=== PATIENT | male | born 1945 | race Caucasian/White ===

== ENCOUNTER → 2018-04-20 | Outpatient (CLI) | payer MEDICARE, OTHER ==
[~2018-04-20] MED LIST: LEVO750 PO; XARELTO20 MG PO
== END ==
LOC: PLD 10:44 → LAB SHORT 10:44
DX: D48.5 Neoplasm of uncertain behavior of skin (principal)
CPT/HCPCS: 88305

== ENCOUNTER 2019-06-25 15:49 | Emergency (ER) | payer MEDICARE, OTHER ==
[~2019-06-25] VITALS: Ht 170.2 cm; Wt 102.1 kg
[2019-06-25] MEDS ORDERED: METF500 PO (16:17)
[2019-06-25 16:22] LABS: BASOPHILS ABSOLUTE AUTO 0.07 K/mm3 (0.00-0.23); BASOPHILS PERCENT AUTO 1 % (0-2); EOSINOPHILS ABSOLUTE AUTO 0.51 K/mm3 (0.00-0.68); EOSINOPHILS PERCENT AUTO 5 % (0-6); Hematocrit 49.5 % (37.0-53.0); Hemoglobin 15.8 g/dL (13.5-17.5); IMMATURE GRAN ABSOLUTE AUTO 0.04 K/mm3 (0.00-0.10); IMMATURE GRAN PERCENT AUTO 0 % (0-1); LYMPHOCYTES ABSOLUTE AUTO 3.99 K/mm3 (0.84-5.20); LYMPHOCYTES PERCENT AUTO 38 % (21-46); MONOCYTES ABSOLUTE AUTO 1.19 K/mm3 (0.16-1.47); MONOCYTES PERCENT AUTO 11 % (4-13); Mean Corpuscular HGB 31.5 pg (26.0-34.0); Mean Corpuscular HGB Conc 31.9 g/dL (31.5-36.5); Mean Corpuscular Volume 99 fL (80-100); Mean Platelet Volume 11.1 fL (9.1-12.4); NEUTROPHILS ABSOLUTE AUTO 4.62 K/mm3 (1.96-9.15); NEUTROPHILS PERCENT AUTO 44 % (41-73); Platelet Count 211 K/mm3 (150-400); RDW Coefficient Variation 14.1 % (11.7-14.2); RDW Standard Deviation 51.2 fL (35.1-46.3); Red Blood Cell Count 5.02 M/mm3 (4.30-5.90); White Blood Cell Count 10.42 K/mm3 (4.00-11.30)
[2019-06-25 16:41] LABS: Alanine Aminotransfer (ALT/SGP 26 U/L (12-78); Albumin, Blood 3.4 g/dL (3.4-5.0); Albumin/Globulin Ratio 0.8 (0.8-1.8); Alk Phos 64 U/L (50-136); Anion Gap 5 mmol/L (6-16); Aspartate Aminotrans (AST/SGOT 20 U/L (12-37); Bilirubin, Total 0.5 mg/dL (0.1-1.0); Blood Urea Nitrogen 16 mg/dL (8-24); Bun/Creatinine Ratio 15.4 (12.0-20.0); CO2, Blood 29 mmol/L (21-32); Calcium, Blood 9.2 mg/dL (8.5-10.1); Chloride, Blood 108 mmol/L (98-108); Creatinine, Blood 1.04 mg/dL (0.60-1.20); Glomerular Filtration Rate >60 (60-); Glucose, Blood 105 mg/dL (70-99); Potassium, Blood 3.9 mmol/L (3.5-5.5); Sodium, Blood 142 mmol/L (136-145); Total Protein, Blood 7.4 g/dL (6.4-8.2); Troponin I <0.015 ng/mL (0.000-0.040)
== END 2019-06-25 19:24 | disposition home or self-care (01) ==
LOC: ER 15:49
PROVIDERS: Physician Assistant
DX: R07.2 Precordial pain (principal); R60.0 Localized edema; Z87.891 Personal history of nicotine dependence; E11.9 Type 2 diabetes mellitus without complications; Z86.718 Personal history of other venous thrombosis and embolism; Z79.899 Other long term (current) drug therapy; Z79.01 Long term (current) use of anticoagulants; Z79.84 Long term (current) use of oral hypoglycemic drugs
CPT/HCPCS: 36415; 71046; 80053; 83880; 84484; 85025; 93005; 93010; 99285-25

== ENCOUNTER → 2021-12-17 | Outpatient (CLI) | payer MEDICARE, OTHER ==
[~2021-12-17] MED LIST changes: +METF500 PO
== END | disposition home or self-care (01) ==
LOC: LAB SHORT 07:57 → PLD 07:57 → LAB 07:57
DX: L98.9 Disorder of the skin and subcutaneous tissue, unspecified (principal)
CPT/HCPCS: 88305; 88312

== ENCOUNTER → 2022-02-23 | Outpatient (CLI) | payer MEDICARE, OTHER | END | disposition home or self-care (01) | LOC: LAB SHORT 14:58 → PLD 14:58 | DX: L30.8 Other specified dermatitis (principal) | CPT/HCPCS: 88305; 88312 ==

== ENCOUNTER → 2022-04-08 | Outpatient (CLI) | payer MEDICARE, OTHER ==
[2022-04-08 12:03] LABS: BASOPHILS ABSOLUTE AUTO 0.09 K/mm3 (0.00-0.23); BASOPHILS PERCENT AUTO 1 % (0-2); EOSINOPHILS ABSOLUTE AUTO 0.68 K/mm3 (0.00-0.68); EOSINOPHILS PERCENT AUTO 7 % (0-6); Hematocrit 46.9 % (37.0-53.0); Hemoglobin 15.3 g/dL (13.5-17.5); IMMATURE GRAN ABSOLUTE AUTO 0.07 K/mm3 (0.00-0.10); IMMATURE GRAN PERCENT AUTO 1 % (0-1); LYMPHOCYTES ABSOLUTE AUTO 3.06 K/mm3 (0.84-5.20); LYMPHOCYTES PERCENT AUTO 30 % (21-46); MONOCYTES ABSOLUTE AUTO 1.29 K/mm3 (0.16-1.47); MONOCYTES PERCENT AUTO 13 % (4-13); Mean Corpuscular HGB 31.4 pg (26.0-34.0); Mean Corpuscular HGB Conc 32.6 g/dL (31.5-36.5); Mean Corpuscular Volume 96 fL (80-100); Mean Platelet Volume 11.2 fL (9.1-12.4); NEUTROPHILS ABSOLUTE AUTO 5.04 K/mm3 (1.96-9.15); NEUTROPHILS PERCENT AUTO 49 % (41-73); Platelet Count 245 K/mm3 (150-400); RDW Coefficient Variation 14.4 % (11.7-14.2); RDW Standard Deviation 51.7 fL (35.1-46.3); Red Blood Cell Count 4.87 M/mm3 (4.30-5.90); White Blood Cell Count 10.23 K/mm3 (4.00-11.30)
[2022-04-08 12:38] LABS: Alanine Aminotransfer (ALT/SGP 33 U/L (12-78); Albumin, Blood 3.3 g/dL (3.4-5.0); Albumin/Globulin Ratio 0.8 (0.8-1.8); Alk Phos 67 U/L (50-136); Anion Gap 6 mmol/L (6-16); Aspartate Aminotrans (AST/SGOT 24 U/L (12-37); Bilirubin, Total 0.4 mg/dL (0.1-1.0); Blood Urea Nitrogen 19 mg/dL (8-24); CO2, Blood 23 mmol/L (21-32); Calcium, Blood 9.7 mg/dL (8.5-10.1); Chloride, Blood 111 mmol/L (98-108); Cholesterol 228 mg/dL (50-200); Creatinine, Blood 1.12 mg/dL (0.60-1.20); Globulin, Blood 3.9 g/dL (2.2-4.0); Glomerular Filtration Rate 67 (60-); Glucose, Blood 115 mg/dL (70-99); HDL Cholesterol 46 mg/dL (>39); LDL/HDL RATIO 3.1; Low Density Lipoprotein Chol 141 mg/dL (0-110); Potassium, Blood 4.2 mmol/L (3.5-5.5); Sodium, Blood 140 mmol/L (136-145); Total Protein, Blood 7.2 g/dL (6.4-8.2); Triglycerides 204 mg/dL (30-160); Very Low Density Lipoprot Chol 40 mg/dL (6-32)
== END | disposition home or self-care (01) ==
LOC: LAB SHORT 11:33
PROVIDERS: Internal Medicine
DX: E78.5 Hyperlipidemia, unspecified (principal); D68.59 Other primary thrombophilia; R73.01 Impaired fasting glucose
CPT/HCPCS: 80053; 80061; 83036; 85025

== ENCOUNTER → 2023-02-03 | Outpatient (CLI) | payer MEDICARE, OTHER | END | disposition home or self-care (01) | LOC: LAB SHORT 07:33 → PLD 07:33 | DX: D04.39 Carcinoma in situ of skin of other parts of face (principal); L81.4 Other melanin hyperpigmentation; L57.8 Other skin changes due to chronic exposure to nonionizing radiation; B88.9 Infestation, unspecified | CPT/HCPCS: 88305 ==

== ENCOUNTER → 2023-04-26 | Outpatient (CLI) | payer MEDICARE, OTHER ==
[~2023-04-26] MED LIST changes: +CEFP200 PO
[2023-05-04 10:15] LABS: BRUSHITE 1.83 ratio (0.00-3.00); CALCIUM OXALATE 3.33 ratio (0.00-6.00); CALCIUM, URINE 54.9 mg/24 hr (0.0-320.0); CALCIUM, URINE 6.1 mg/dL (Not Estab.); CHLORIDE URINE 97 (52-264); CITRIC ACID (CITRATE) 292 mg/L (Not Estab.); CITRIC ACID(CITRATE) 263 mg/24 hr (320-1240); CREATININE, URINE 776.7 mg/24 hr (1000.0-2000.0); CREATININE, URINE 86.3 mg/dL (Not Estab.); MAGNESIUM, URINE 7.1 mg/dL (Not Estab.); MONOSODIUM URATE 7.17 ratio (0.00-4.00); OSMOLALITY, URINE 539 (300-900); SODIUM, URINE 133 (58-337); SODIUM, URINE 148 mmol/L (Not Estab.); STRUVITE 0.09 ratio (0.00-1.00); URIC ACID 0.39 ratio (0.00-1.20); URINE VOLUME 900 mL/24 hr (800-1800); URINE VOLUME (PRESERVATIVE) 900 mL/24 hr (800-1800)
== END | disposition home or self-care (01) ==
LOC: LAB SHORT 08:10 → LAB 08:10
PROVIDERS: Urology
DX: N20.2 Calculus of kidney with calculus of ureter (principal)
CPT/HCPCS: 81003; 81050; 82131; 82140; 82340; 82436; 82507; 82570; 83735; 83935; 83945; 84105; 84133; 84300; 84392; 84560

== ENCOUNTER 2024-07-03 13:34 | Inpatient (IN) | payer MEDICARE, OTHER ==
[~2024-07-03] VITALS: Ht 172.7 cm; Wt 90.0 kg
[2024-07-03] MEDS ORDERED: Ondansetron HCl 2 MG / ML 2ML Vial IV PRN (14:00)
[2024-07-03 14:26] LABS: BASOPHILS ABSOLUTE AUTO 0.05 K/mm3 (0.00-0.23); BASOPHILS PERCENT AUTO 0 % (0-2); EOSINOPHILS PERCENT AUTO 0 % (0-6); Hematocrit 45.4 % (37.0-53.0); Hemoglobin 14.9 g/dL (13.5-17.5); IMMATURE GRAN ABSOLUTE AUTO 0.08 K/mm3 (0.00-0.10); IMMATURE GRAN PERCENT AUTO 1 % (0-1); LYMPHOCYTES ABSOLUTE AUTO 0.89 K/mm3 (0.84-5.20); LYMPHOCYTES PERCENT AUTO 6 % (21-46); MONOCYTES PERCENT AUTO 13 % (4-13); Mean Corpuscular HGB 31.9 pg (26.0-34.0); Mean Corpuscular HGB Conc 32.8 g/dL (31.5-36.5); Mean Corpuscular Volume 97 fL (80-100); Mean Platelet Volume 10.5 fL (9.1-12.4); NEUTROPHILS ABSOLUTE AUTO 12.32 K/mm3 (1.96-9.15); NEUTROPHILS PERCENT AUTO 81 % (41-73); Platelet Count 242 K/mm3 (150-400); RDW Coefficient Variation 14.4 % (11.7-14.2); RDW Standard Deviation 52.3 fL (35.1-46.3); Red Blood Cell Count 4.67 M/mm3 (4.30-5.90); White Blood Cell Count 15.24 K/mm3 (4.00-11.30)
[2024-07-03 14:46] LABS: Albumin/Globulin Ratio 0.7 (0.8-1.8); Bilirubin, Total 1.1 mg/dL (0.1-1.0); Bun/Creatinine Ratio 12.7 (12.0-20.0); Calcium, Blood 9.3 mg/dL (8.5-10.1); Creatinine, Blood 1.26 mg/dL (0.60-1.20); Globulin, Blood 4.6 g/dL (2.2-4.0); Potassium, Blood 3.8 mmol/L (3.5-5.5); Total Protein, Blood 7.6 g/dL (6.4-8.2)
[2024-07-03] MEDS ORDERED: Lactated Ringer's 1,000 ML IV SCH (15:40)
[2024-07-03] MEDS ORDERED: JARDIANCE10 MG PO (15:55)
[2024-07-03] MEDS ORDERED: ATORVASTATIN CA20 MG PO (15:55)
[2024-07-03] MEDS ORDERED: Piperacillin/Tazobactam Sod 3.375 GM in NS 100 ML IV ONE (16:00)
[2024-07-03] MEDS ORDERED: Vancomycin HCL 2,000 MG in NS 520 ML IV ONE (16:00)
[2024-07-03 16:21] LABS: Source, Urine Clean Catch
[2024-07-03 16:28] LABS: Appearance, Urine Cloudy (Clear); Bilirubin, Urine Neg (Neg); Blood, Urine 4+ (Neg); Color, Urine Yellow (P-Yellow); Glucose Qualitative, Urine 4+ (Neg); Ketones, Urine 2+ (Neg); Leukocyte Esterase, Urine Neg (Neg); Nitrite, Urine Neg (Neg); Protein, Urine 3+ (Neg); Specific Gravity, Urine 1.025 (1.003-1.022); Urobilinogen, Urine NORM (Normal)
[2024-07-03 16:41] LABS: Amorphous Mod (0-Heavy); Bacteria Few /hpf; Squamous Epithelial Cells Few /hpf (Few); White Blood Cells, Urine 0-2 /hpf (0-5); Yeast/Fungi Urine Rare /hpf
[2024-07-03 16:44] LABS: Hyaline Casts 0-2 /lpf (0-2); Renal Epithelial Rare /hpf (0-Rare)
[2024-07-03] MEDS ORDERED: Guaifenesin/Dextromethorphan Syrup 5 ML UDC PO PRN (18:45)
[2024-07-03] MEDS ORDERED: Ipratropium/Albuterol SulF 2.5-0.5MG/3 ML Amp INH SCH (18:45)
[2024-07-03] MEDS ORDERED: Acetaminophen 325 MG TABLET PO PRN (18:45)
[2024-07-03] MEDS ORDERED: Albuterol 2.5 MG/3 ML VIAL INH PRN (18:45)
[2024-07-03] MEDS ORDERED: NS 1,000 ML IV SCH ×2 (18:50→19:30)
[2024-07-03] MEDS ORDERED: Azithromycin 500 MG in NS 250 ML IV ONE (19:00)
[2024-07-03] MEDS ORDERED: FLU VACC TS2024-25(6MOS UP)/PF 45 MCG/0.5 ML SYRINGE IM ONE (20:00)
[2024-07-03] MEDS ORDERED: Calcium Carbonate 500 MG Tab Chew PO ONE (20:00)
[2024-07-03 20:18] LABS: Influenza A, PCR NEGATIVE (NEGATIVE); Influenza B, PCR NEGATIVE (NEGATIVE); Resp Syncytial Virus, PCR NEGATIVE (NEGATIVE); SARS-Cov-2 (COVID-19) PCR, MMC NEGATIVE (NEGATIVE)
[2024-07-03] MEDS ORDERED: Atorvastatin 10 MG Tab PO SCH (21:00)
[2024-07-03] MEDS ORDERED: Insulin Human Lispro 100 Units/ML 3ML Syringe SC SCH (21:00)
[2024-07-03] MEDS ORDERED: GuaiFENesin 600 MG TabCR PO SCH (21:00)
[2024-07-03] MEDS ORDERED: NS 1,000 ML IV ONE (22:22)
[2024-07-03] MEDS ORDERED: Piperacillin/Tazobactam Sod 3.375 GM in NS 100 ML IV SCH (23:20)
[2024-07-04] VITALS: BP 146/85
[2024-07-04 03:18] VITALS: BP 127/73
[2024-07-04 04:40] LABS: BASOPHILS ABSOLUTE AUTO 0.03 K/mm3 (0.00-0.23); BASOPHILS PERCENT AUTO 0 % (0-2); EOSINOPHILS PERCENT AUTO 0 % (0-6); Hematocrit 41.7 % (37.0-53.0); Hemoglobin 14.2 g/dL (13.5-17.5); IMMATURE GRAN ABSOLUTE AUTO 0.09 K/mm3 (0.00-0.10); IMMATURE GRAN PERCENT AUTO 1 % (0-1); LYMPHOCYTES ABSOLUTE AUTO 1.81 K/mm3 (0.84-5.20); LYMPHOCYTES PERCENT AUTO 11 % (21-46); MONOCYTES ABSOLUTE AUTO 2.52 K/mm3 (0.16-1.47); MONOCYTES PERCENT AUTO 15 % (4-13); Mean Corpuscular HGB 32.7 pg (26.0-34.0); Mean Corpuscular HGB Conc 34.1 g/dL (31.5-36.5); Mean Corpuscular Volume 96 fL (80-100); Mean Platelet Volume 11.4 fL (9.1-12.4); NEUTROPHILS ABSOLUTE AUTO 11.95 K/mm3 (1.96-9.15); NEUTROPHILS PERCENT AUTO 73 % (41-73); Platelet Count 213 K/mm3 (150-400); RDW Coefficient Variation 14.3 % (11.7-14.2); RDW Standard Deviation 50.4 fL (35.1-46.3); Red Blood Cell Count 4.34 M/mm3 (4.30-5.90)
[2024-07-04 04:59] LABS: Bun/Creatinine Ratio 16.1 (12.0-20.0); Calcium, Blood 8.8 mg/dL (8.5-10.1); Creatinine, Blood 1.24 mg/dL (0.60-1.20); Potassium, Blood 3.9 mmol/L (3.5-5.5)
--- NOTE | 2024-07-04 05:53 | NUR ---
PT ADMITTED TO PCU AFTER MIDNIGHT. A&OX3 WITH SON AT BEDSIDE. PT TAKEN OFF NC AND PLACED ON RA @ >93%. PT ON TELE SR IN 70s. AFEBRILE. PT HAS NO C/O PAIN. PT DOES HAVE RIGHT SIDED WEAKNESS BUT HAS FEELING IN ALL EXTREMITIES. PT PLACED ON MALE PUREWICK AND VOIDING ADEQUATELY. NO FURTHER QUESTIONS OR CONCERNS AT THIS TIME. CALL NORMAN WITHIN REACH WITH BED ALARM ON. WILL CONTINUE TO MONITOR UNTIL SHIFT CHANGE.
[2024-07-04 07:53] VITALS: BP 130/63
--- NOTE | 2024-07-04 11:15 | NUR ---
NURSE NOTE PATIENT WORKING WITH PT AT THIS TIME. SON IN ROOM. CALL LIGHT IN REACH
[2024-07-04 12:08] VITALS: BP 131/58
[2024-07-04 15:29] VITALS: BP 132/64
--- NOTE | 2024-07-04 17:39 | NUR ---
SHIFT SUMMARY PATIENT IS A+O X3-4, WILL BECOME UPSET WHEN HE ANSWERS A QUESTION WRONG OR IS OVERSTIMULATED. UP TO CHAIR FOR APPROX 3 HOURS. AFTER WORKING WITH PT. PT ROMAN HAS HIM A ONE PERSON TRANSFER W/ FWW AND GAIT BELT. PATIENT DOES HOWEVER "FORGET TO USE" RIGHT SIDE AND MAY NEED TO BE PROMPTED TO ALIGH BODY CORECTLY WHEN TRANSFERING. PATIENT DOES DRIFT TO THE RIGHT SIDE WHILE IN BED OR CHAIR, PILLOWS USED TO PROP PATIENTUP IN GOOD ALIGNMENT, AND TO REST RIGHT ARM ON FOR COMFORT. IV ABX CONTINUED TODAY. FAMILY WISHES TO HAVE PATIENT STAY IN THE HOSPITAL UNTIL WEDNESDAY AFTERNOON IF POSSIBLE SO ADULT SON AND ASSIT WITH GETTING HIM HOME. FAMILY WISHES FOR PATIENT TO CONTINUE TO WORK WITH PT/OT DURING STAY. ARE AGREEABLE TO SHORT TERM SNF PLACEMENT FOR REHAB IF RECCOMENDED OR RETURNING HOME W/ ASSIST DEVICES TO HELP CARE FOR PATIENT. WILL CONTINUE TO MONITOR UNTIL SHIFT CHANGE, BED ALARM ON, BED IN LOWEST POSITION FOR SAFETY, SIDE RAILS UP X2.
[2024-07-04 19:34] VITALS: BP 149/69
[2024-07-04] MEDS ORDERED: Azithromycin 500 MG in NS 250 ML IV SCH (21:00)
[2024-07-05] VITALS (24 sets, daily range): BP systolic 107–156; BP diastolic 62–98
[2024-07-05 04:39] LABS: Hematocrit 39.8 % (37.0-53.0); Hemoglobin 13.3 g/dL (13.5-17.5); Mean Corpuscular HGB Conc 33.4 g/dL (31.5-36.5); Mean Corpuscular Volume 96 fL (80-100); Mean Platelet Volume 11.3 fL (9.1-12.4); Platelet Count 206 K/mm3 (150-400); RDW Coefficient Variation 14.2 % (11.7-14.2); RDW Standard Deviation 50.2 fL (35.1-46.3); Red Blood Cell Count 4.16 M/mm3 (4.30-5.90); White Blood Cell Count 15.31 K/mm3 (4.00-11.30)
[2024-07-05 04:59] LABS: Bun/Creatinine Ratio 19.5 (12.0-20.0); Calcium, Blood 8.6 mg/dL (8.5-10.1); Creatinine, Blood 1.18 mg/dL (0.60-1.20); Potassium, Blood 3.7 mmol/L (3.5-5.5)
--- NOTE | 2024-07-05 06:12 | NUR ---
SHIFT SUMMARY NO ACUTE EVENTS. VSS, T MAX 99.7, MEDICATED WITH TYLENOL 650MG X1 EFFECTIVE, PT RESTING WITH EYES CLOSED MOST OF SHIFT, AROUSES EASILY TO VERBAL STIMULI, DENIES C/O PAIN OR NEEDS,PT ORIENTED TO PERSON AND YEAR, EASILY REORIENTED TO PLACE, SITUATION, NEEDS FREQUENT REORIENTATION, NOTED BLE +3 EDEMA, SCDS ON BLE,RUE WEAKNESS NOTED, FREQUENTLY LEANS TO RIGHT SIDE IN BED WITH REPOSITIONING ASSISTANCE NEEDED, NOTED RIGHT FACIAL DROOP WITH SMILE PUREWICK IN PLACE AND VOIDING YELLOW URINE, PIV TO RIGHT AC PATENT, BED ALARM ON , SIDE RAILS UP X2 CALL LIGHT IN REACH
[2024-07-05] MEDS ORDERED: Lactobacil 2-S.Thermo-Bifido 1 1 Cap PO SCH (09:00)
--- NOTE | 2024-07-05 10:12 | NUR ---
NURSE NOTE DR. GUILLAUME NOTIFIED OF PATIENT RYHTHM CHANGE FROM SINUS TO A-FIB AT A RATE OF 170. SHE STATED SHE WILL PUT IN ORDERS. PATIENT PRESENTING WELL, SITTING UP IN CHAIR, SAID HE FEELS FINE.
[2024-07-05] MEDS ORDERED: Metoprolol Tartrate 1 MG/ML 5 ML VIAL IV PRN (10:30)
--- NOTE | 2024-07-05 10:37 | NUR ---
Pt went into afib with RVR, 148-181 bpm, asymptomatic. EKG done and IV metoprolol given. B/P remained stable throughout. Pt is up in recliner, states that he feels normal.
[2024-07-05] MEDS ORDERED: Adenosine 3 MG/ML 2 ML Vial ONE ×2 (10:57)
--- NOTE | 2024-07-05 11:45 | NUR ---
CASE CONFERENCE: Spoke with pt's son Chapincito by phone this morning. He states he is the pt's medical POA, and pt's Laquita concurs. Chapincito is aware that patient is currently in A-fib and has been given adenosine, amiodarone and metoprolol so far with little improvement in heart rate. According to bedside RN, pt's HR went from 180's to 160's, but has not improved further. Pt's Laquita is at bedside. Son Chapincito states the patient has chosen to be a Full Code for now, and he intends to honor this, unless the patient himself changes his mind. Chapincito states he will be here in approximately 3 hours, and will make changes to pt's code status as needed but for now, requests "everything" be done. The patient has been minimally combative, but is expressing frustration with being "poked and messed with." Will check in again when son arrives today.
[2024-07-05] MEDS ORDERED: Adenosine 3 MG/ML 2 ML Vial IV ONE (11:55)
[2024-07-05] MEDS ORDERED: Piperacillin/Tazobactam Sod 3.375 GM in NS 100 ML IV SCH (12:00)
--- NOTE | 2024-07-05 12:35 | NUR ---
Amiodarone bolus completed, started amiodarone gtt at 33.3 ml/hour at this time. Heart rate 129 bpm, atrail fibrillation. Blood pressure 114/90. Pt is sleeping, is at bedside.
--- NOTE | 2024-07-05 15:22 | NUR ---
NURSE NOTE DR. GUILLAUME ARRIVED AT BEDSIDE AFTER ADENOSINE WAS PUSHED AT 1135, RATE SLOWED FOR A FEW SECONDS TO CONFIRM PATIENT WAS IN A-FIB. DR. GUILLAUME VERBALLY GAVE ORDER FOR REPEAT LOPRESSOR 5 MG IV PUSH GIVEN AT 1139. PATIENT CONVERTED TO NORMAL SINUS AT APPROX 1510. AMIODARONE DRIP TO CONTINUE AT RATE OF 33.3 UNTIL 1830, THEN CONTINUE COURSE FOR FULL 24 HOURS. WILL CONTINUE TO TREAT, FAMILY AT BEDSIDE. CALL LIGHT IN REACH
--- NOTE | 2024-07-05 17:46 | NUR ---
SHIFT SUMMARY PATIENT IS A+O X3, CONFUSED ON SITUATION AND DATE, EASILY REORIENTED. RUE WEAKNESS, PATIENT WILL DRIFT TO R SIDE WHILE IN BED, NEEDS FREQUANT REPOSTIONING. 1-2 PERSON TRANSFER W/ FWW AND GAIT BELT. PATIENT WAS UNABLE TO WORK WITH PT OR OT TODAY DUE TO CARDIAC ISSUES. WAS UP TO CHAIR THIS AM FOR APPROX ONE HOUR, HAD BED BATH AND LIEN CHANGED. CURRENTLY SITTING UP IN BED WITH PILLOWS UNDER BOTH ARMS AND VISITING WITH FAMILY. AMIODARONE STILL RUNNING. BED IN LOWEST POSTION, SIDE RAILS UP X2, CALL LIGHT IN REACH. WILL CONTINUE TO TREAT UNTIL END OF SHIFT.
--- NOTE | 2024-07-05 18:33 | NUR ---
AMIODARONE TITRATED DOWN TO 16.7 GTT.
[2024-07-06] VITALS (7 sets, daily range): BP systolic 126–149; BP diastolic 59–90
--- NOTE | 2024-07-06 05:45 | NUR ---
PT RESTED QUIETLY THROUGHOUT SHIFT W/ NO S/S OF DISCOMFORT NOTED. DENIED ANY KIND OF DISCOMFORT, SOB OR DYSPNEA. DOES HAVE SLIGHT EXPIRATORY WHEEZING; BUT NO S/S OF RESPIRATORY DISTRESS NOTED. AMIODARONE GTT CONTINUES. REPOSITIONED PT Q2 HRS.
[2024-07-06 09:43] LABS: Hematocrit 40.5 % (37.0-53.0); Hemoglobin 13.7 g/dL (13.5-17.5); Mean Corpuscular HGB 32.3 pg (26.0-34.0); Mean Corpuscular HGB Conc 33.8 g/dL (31.5-36.5); Mean Corpuscular Volume 96 fL (80-100); Mean Platelet Volume 11.3 fL (9.1-12.4); Platelet Count 215 K/mm3 (150-400); RDW Coefficient Variation 14.3 % (11.7-14.2); RDW Standard Deviation 50.1 fL (35.1-46.3); Red Blood Cell Count 4.24 M/mm3 (4.30-5.90); White Blood Cell Count 15.66 K/mm3 (4.00-11.30)
[2024-07-06] MEDS ORDERED: Hyaluronidase 150 UNIT/ML Vial SC ONE (09:55)
[2024-07-06 10:07] LABS: Bun/Creatinine Ratio 16.7 (12.0-20.0); Calcium, Blood 8.9 mg/dL (8.5-10.1); Creatinine, Blood 1.08 mg/dL (0.60-1.20); Potassium, Blood 3.5 mmol/L (3.5-5.5)
--- NOTE | 2024-07-06 17:19 | NUR ---
SHIFT SUMMARY PT A/OX3-4 FORGETFUL. PT COOPERATIVE OF CARE AND ABLE TO EXPRESS NEEDS. PT ABLE TO ASSIST WITH TURNS AND WAS ABLE TO AMBULATE TO BSC VIA FWW/GB AND 1 PER ASSIST, TOLERATED FAIR. MILD FEVER NOTED THIS EVENING 99.3F. OTHER VSS THROUGHOUT SHIFT WITH O2 SATS IN THE 90'S ON RA. NO REPORT OF CHEST PAIN/PRESSURE THROUGHOUT SHIFT. NO REPORT OF SOB/DYSPNEA THROUGHOUT SHIFT. CARE MANAGEMENT DISCUSSED HOME HEALTH WOTH FAMILY AND PT, PLAN IS TO DISCHARGE ON HOME HEALTH. PT REFUSED TO WORK THERAPY TODAY. AMIO GTT INFILTRATED THIS MORNING, NOTIFIED AND TREATED.
[2024-07-07 03:29] VITALS: BP 125/68
--- NOTE | 2024-07-07 04:00 | NUR ---
PT A/Ox4. EXTREMELY [place]. SLEPT COMFORTABLY THROUGH THE NIGHT W/ NO S/S OR C/O PAIN OR DISCOMFORT. WICKING SYSTEM IN PLACE, WORKING PROPERLY. NO RESPIRATORY DISTRESS NOTED. NSR MOST OF THE NIGHT. NO CP NOTED.
[2024-07-07 04:32] LABS: BASOPHILS ABSOLUTE AUTO 0.03 K/mm3 (0.00-0.23); BASOPHILS PERCENT AUTO 0 % (0-2); EOSINOPHILS ABSOLUTE AUTO 0.02 K/mm3 (0.00-0.68); EOSINOPHILS PERCENT AUTO 0 % (0-6); Hematocrit 38.7 % (37.0-53.0); Hemoglobin 13.2 g/dL (13.5-17.5); IMMATURE GRAN ABSOLUTE AUTO 0.11 K/mm3 (0.00-0.10); IMMATURE GRAN PERCENT AUTO 1 % (0-1); LYMPHOCYTES ABSOLUTE AUTO 1.75 K/mm3 (0.84-5.20); LYMPHOCYTES PERCENT AUTO 11 % (21-46); MONOCYTES ABSOLUTE AUTO 1.97 K/mm3 (0.16-1.47); MONOCYTES PERCENT AUTO 12 % (4-13); Mean Corpuscular HGB 32.3 pg (26.0-34.0); Mean Corpuscular HGB Conc 34.1 g/dL (31.5-36.5); Mean Corpuscular Volume 95 fL (80-100); NEUTROPHILS ABSOLUTE AUTO 11.95 K/mm3 (1.96-9.15); NEUTROPHILS PERCENT AUTO 76 % (41-73); Platelet Count 212 K/mm3 (150-400); RDW Coefficient Variation 14.3 % (11.7-14.2); RDW Standard Deviation 49.9 fL (35.1-46.3); Red Blood Cell Count 4.09 M/mm3 (4.30-5.90); White Blood Cell Count 15.83 K/mm3 (4.00-11.30)
[2024-07-07 04:52] LABS: Bun/Creatinine Ratio 16.2 (12.0-20.0); Calcium, Blood 8.5 mg/dL (8.5-10.1); Creatinine, Blood 1.11 mg/dL (0.60-1.20); Potassium, Blood 3.5 mmol/L (3.5-5.5)
[2024-07-07 07:19] VITALS: BP 131/68
[2024-07-07 11:29] VITALS: BP 132/69
[2024-07-07 16:28] VITALS: BP 145/97
[2024-07-07] MEDS ORDERED: Empagliflozin 10 MG TAB PO SCH (17:00)
[2024-07-07] MEDS ORDERED: Amiodarone HCl 200 MG Tab PO SCH (17:00)
--- NOTE | 2024-07-07 17:10 | NUR ---
UPDATE PT CONVERTED TO AFIB RVR AT 1647. THIS RN TO ROOM TO ASSESS. PT ASYMPTOMATIC AND VSS. MD NOTIFIED OF CONVERSION. PT SWITCHED BACK TO PCU STATUS. IV LOPRESSOR GIVEN PER ORDER. PO AMIO AND JARDIANCE ORDERED AND GIVEN. PT RHYTHM GOING BACK AND FORTH FROM SR AND AFIB RVR.
--- NOTE | 2024-07-07 17:21 | NUR ---
UPDATE PT CONVERTED TO SR AT 1712. NOTIFIED.
--- NOTE | 2024-07-07 17:52 | NUR ---
SHIFT SUMMARY PT A/OX3-4 CONFUSED AT TIMES. PT ABLE TO EXPRESS NEEDS. PT UP TO BSC AGAIN THIS SHIFT, 1PER ASSIST WITH FWW/GB, TOLERATED FAIR. PT HR STABLE FOR MAJORITY OF SHIFT, CONVERTED TO AFIB RVR THIS AFTERNOON, SEE PREVIOUS NOTES. OTHER VSS THROUGHOUT SHIFT WITH O2 SATS IN THE 90'S ON RA. PT EXPRESSED TO MD THAT HE WANTED ONE MORE DAY AT THE HOSPITAL. FAMILY STATED THAT HOSPTIAL BED HAS BEEN SETUP AT PT'S RESIDENCE, PLAN TO DC TOMORROW. POOR ORAL INTAKE THIS SHIFT. PUREWICK IN PLACE CONNECTED TO SUCTION, YELLOW/ADEN URINE. FAMILY UPDATED ON PLAN OF CARE AND WERE ALSO PRESENT FOR AFIB RVR EVENT.
[2024-07-07 20:30] VITALS: BP 145/96
[2024-07-07 20:41] VITALS: BP 157/77
[2024-07-08 00:16] VITALS: BP 146/76
[2024-07-08 03:59] VITALS: BP 168/85
[2024-07-08 04:07] LABS: BASOPHILS ABSOLUTE AUTO 0.04 K/mm3 (0.00-0.23); BASOPHILS PERCENT AUTO 0 % (0-2); EOSINOPHILS ABSOLUTE AUTO 0.03 K/mm3 (0.00-0.68); EOSINOPHILS PERCENT AUTO 0 % (0-6); Hematocrit 40.4 % (37.0-53.0); Hemoglobin 13.8 g/dL (13.5-17.5); IMMATURE GRAN PERCENT AUTO 1 % (0-1); LYMPHOCYTES ABSOLUTE AUTO 2.12 K/mm3 (0.84-5.20); LYMPHOCYTES PERCENT AUTO 13 % (21-46); MONOCYTES ABSOLUTE AUTO 1.84 K/mm3 (0.16-1.47); MONOCYTES PERCENT AUTO 12 % (4-13); Mean Corpuscular HGB 32.1 pg (26.0-34.0); Mean Corpuscular HGB Conc 34.2 g/dL (31.5-36.5); Mean Corpuscular Volume 94 fL (80-100); NEUTROPHILS ABSOLUTE AUTO 11.67 K/mm3 (1.96-9.15); NEUTROPHILS PERCENT AUTO 73 % (41-73); Platelet Count 244 K/mm3 (150-400); RDW Coefficient Variation 14.2 % (11.7-14.2); RDW Standard Deviation 49.1 fL (35.1-46.3)
[2024-07-08 04:28] LABS: Albumin, Blood 1.9 g/dL (3.4-5.0); Albumin/Globulin Ratio 0.4 (0.8-1.8); Bilirubin, Total 0.9 mg/dL (0.1-1.0); Bun/Creatinine Ratio 17.8 (12.0-20.0); Calcium, Blood 8.8 mg/dL (8.5-10.1); Creatinine, Blood 1.07 mg/dL (0.60-1.20); Globulin, Blood 4.4 g/dL (2.2-4.0); Potassium, Blood 3.6 mmol/L (3.5-5.5); Total Protein, Blood 6.3 g/dL (6.4-8.2)
--- NOTE | 2024-07-08 05:24 | NUR ---
PT A/O x3-4. EXTREMELY [place]. NO RESPIRATORY OR CARDIAC DISTRESS T/O SHIFT. PRODUCTIVE COUGH; TENACIOUS WHITE SECRETIONS SUCTIONED. DENIED PAIN. NO CP NOTED. STATES HE WANTS TO GO HOME. WICKING SYSTEM IN PLACE AND FUNCTIONING PROPERLY.
[2024-07-08 08:00] VITALS: BP 161/88
[2024-07-08 11:24] VITALS: BP 154/77
[2024-07-08 15:25] LABS: Albumin/Globulin Ratio 0.4 (0.8-1.8); Bilirubin, Direct 0.3 mg/dL (0.0-0.3); Bilirubin, Indirect 0.5 mg/dL (0.1-0.7); Bilirubin, Total 0.8 mg/dL (0.1-1.0); Globulin, Blood 4.5 g/dL (2.2-4.0); Total Protein, Blood 6.5 g/dL (6.4-8.2)
--- NOTE | 2024-07-08 16:03 | NUR ---
NOTIFIED OF LFT'S VALUES INCREASE, SEE LABS
[2024-07-08 16:22] VITALS: BP 144/83
--- NOTE | 2024-07-08 17:47 | NUR ---
SHIFT SUMMARY PT A/OX3-4, CONFUSED AT TIMES. PT ABLE TO EXPRESS NEEDS. PT VSS THROUGHOUT SHIFT WITH O2 SATS IN THE 90'S ON RA. NO REPORT OF CHEST PAIN/PRESSURE THROUGHOUT SHIFT. NO REPORT OF SOB THROUGHOUT SHIFT. PT ENCOURAGED TO BE UP TO RECLINER TODAY, PT AGREE AND WAS UP TO RECLINER FOR DINNER. PT ABLE TO AMBULATE VIA FWW/GB 1 PER ASSIST, TOLERATED FAIR. PUREWICK REMAINED IN PLACE, YELLOW/ADEN URINE.PT PO INTAKE POOR AGAIN THIS SHIFT, PT ENCOURAGED TO EAT, PT STATES "I HAVE NO APPETITE." PT LFT'S ELEVATED, AWARE.
[2024-07-08 20:08] VITALS: BP 165/84
[2024-07-09] VITALS (7 sets, daily range): BP systolic 130–164; BP diastolic 68–80
[2024-07-09 09:45] LABS: Albumin/Globulin Ratio 0.4 (0.8-1.8); Bilirubin, Direct 0.3 mg/dL (0.0-0.3); Bilirubin, Indirect 0.5 mg/dL (0.1-0.7); Bilirubin, Total 0.8 mg/dL (0.1-1.0); Globulin, Blood 4.7 g/dL (2.2-4.0); Total Protein, Blood 6.7 g/dL (6.4-8.2)
[2024-07-09 13:50] LABS: Albumin, Blood 2.2 g/dL (3.4-5.0); Albumin/Globulin Ratio 0.5 (0.8-1.8); Bilirubin, Direct 0.3 mg/dL (0.0-0.3); Bilirubin, Indirect 0.5 mg/dL (0.1-0.7); Bilirubin, Total 0.8 mg/dL (0.1-1.0); Globulin, Blood 4.8 g/dL (2.2-4.0)
--- NOTE | 2024-07-09 18:13 | NUR ---
End of shift note Pt was OOB for multiple hours this morning. Pt is able to move with FWW and 1-2 person assistance. HR has been stable this shift. 60-70s. Amio was decreased due to liver labs. Fair PO intake. Lots of encouragement from staff. was here to visit this afternoon. She reports that they are all ready for him to come home and have significant help to assist Pt once he is home. This evening his right arm is notably red and tender, with redness outside of the previously marked line. was notified. Arm was remarked and dated. Pt is able to make needs known, call light is within reach.
[2024-07-10 04:00] VITALS: BP 153/83
--- NOTE | 2024-07-10 06:13 | NUR ---
EOS: NO ACUTE CHANGES. PATIENT REMAINS ALERT AND ORIENTED FOR THIS RN. SPO2 >93% ON RA. MILDLY HYPERTENSIVE, IMPROVED WITHOUT STIMULATION 150'S, WITH MOVEMENT 170'S. PATIENT HAS BEEN COOPERATIVE AND PLEASANT DENIES CHEST PAIN PRESSURE OR SOB. PLAN OF CARE CONTINUES.
[2024-07-10 06:55] LABS: BASOPHILS ABSOLUTE AUTO 0.08 K/mm3 (0.00-0.23); BASOPHILS PERCENT AUTO 1 % (0-2); EOSINOPHILS ABSOLUTE AUTO 0.15 K/mm3 (0.00-0.68); EOSINOPHILS PERCENT AUTO 1 % (0-6); Hematocrit 39.4 % (37.0-53.0); Hemoglobin 13.6 g/dL (13.5-17.5); IMMATURE GRAN PERCENT AUTO 2 % (0-1); LYMPHOCYTES ABSOLUTE AUTO 1.94 K/mm3 (0.84-5.20); LYMPHOCYTES PERCENT AUTO 17 % (21-46); MONOCYTES ABSOLUTE AUTO 1.31 K/mm3 (0.16-1.47); MONOCYTES PERCENT AUTO 11 % (4-13); Mean Corpuscular HGB 32.5 pg (26.0-34.0); Mean Corpuscular HGB Conc 34.5 g/dL (31.5-36.5); Mean Corpuscular Volume 94 fL (80-100); Mean Platelet Volume 11.3 fL (9.1-12.4); NEUTROPHILS ABSOLUTE AUTO 7.86 K/mm3 (1.96-9.15); NEUTROPHILS PERCENT AUTO 68 % (41-73); Platelet Count 277 K/mm3 (150-400); RDW Coefficient Variation 14.3 % (11.7-14.2); RDW Standard Deviation 49.5 fL (35.1-46.3); Red Blood Cell Count 4.18 M/mm3 (4.30-5.90); White Blood Cell Count 11.54 K/mm3 (4.00-11.30)
[2024-07-10 07:14] LABS: Albumin, Blood 1.9 g/dL (3.4-5.0); Albumin/Globulin Ratio 0.4 (0.8-1.8); Bilirubin, Total 0.6 mg/dL (0.1-1.0); Bun/Creatinine Ratio 15.7 (12.0-20.0); Calcium, Blood 8.9 mg/dL (8.5-10.1); Creatinine, Blood 1.08 mg/dL (0.60-1.20); Globulin, Blood 4.4 g/dL (2.2-4.0); Potassium, Blood 3.2 mmol/L (3.5-5.5); Total Protein, Blood 6.3 g/dL (6.4-8.2)
[2024-07-10 07:46] VITALS: BP 149/72
[2024-07-10] MEDS ORDERED: Amiodarone HCl 200 MG Tab PO SCH (09:00)
[2024-07-10] MEDS ORDERED: Potassium Chloride 10 Meq Tablet SA PO ONE (11:00)
[2024-07-10 11:03] VITALS: BP 130/70
[2024-07-10] MEDS ORDERED: AMIODARONE HCL400 M2 PO (11:05)
[2024-07-10] MEDS ORDERED: Amiodarone HCl200 MG PO (11:05)
--- NOTE | 2024-07-10 11:31 | NUR ---
MORNING SUMMMARY THE PT IS A&OX4, BUT FORGETFUL AT TIMES. HE IS A 1P ASSIST W/ FWW AND GB. HE IS PENDING DISCHARGE AFTER HIS ANTIBIOTICS FINISH. THE PT'S SPOUSE AND SON ARE HERE TO SLAT BASKET MAKER THE PT. THEY STATED THEY ALREADY RECIEVED A CALL FROM HOME HEALTH AND HAVE A HOSPITAL BED SET UP. THE PT'S WICKING SYSTEM WAS D/C AND URINAL USAGED ENCOURAGES. THE PT IS UP IN THE CHAIR AFTER HAVING A BOWEL MOVMENT IN THE BSC. NO ACUTE EVENTS THIS MORNING. SEE NOTES FOR ANY UPDATES.
--- NOTE | 2024-07-10 12:23 | NUR ---
DSICHARGE this rn went voer dsicharge education with the patient and patients son at 1150. pateint son and pateint verbalized undertsanding. apteint left with all belonings and in no dsitress.
== END 2024-07-10 11:54 | disposition home or self-care (01) | DRG 871 ==
LOC: ER 13:34 → PCU 18:40 → ERHOLD 18:40 → PCU 07-04 00:27
PROVIDERS: Emergency Medicine; Family Medicine; Internal Medicine; ADMIT Internal Medicine
DX: A41.9 Sepsis, unspecified organism (principal); I61.8 Other nontraumatic intracerebral hemorrhage; J18.9 Pneumonia, unspecified organism; E87.20 Acidosis, unspecified; I50.32 Chronic diastolic (congestive) heart failure; D68.62 Lupus anticoagulant syndrome; N17.9 Acute kidney failure, unspecified; R65.20 Severe sepsis without septic shock; I48.0 Paroxysmal atrial fibrillation; E78.5 Hyperlipidemia, unspecified; E11.9 Type 2 diabetes mellitus without complications; J44.9 Chronic obstructive pulmonary disease, unspecified; R74.01 Elevation of levels of liver transaminase levels; Z79.84 Long term (current) use of oral hypoglycemic drugs; Z79.02 Long term (current) use of antithrombotics/antiplatelets; Z86.718 Personal history of other venous thrombosis and embolism; Z87.891 Personal history of nicotine dependence
CPT/HCPCS: 0241U; 36415; 70450; 71045; 80048; 80053; 80076; 81001; 82947; 83605; 84145; 84484; 85025; 85027; 87040; 93005; 93010; 94640; 94664; 94760; 94762; 96365; 96366; 96367; 97110; 97116; 97162; 97165; 97530; 97535; 99285-25; A9270; C8929; J0153; J0282; J0456; J2405; J2543; J3370; J3470; J7030; J7040; J7050; J7060; J7120; Q9957

== ENCOUNTER 2024-08-13 21:15 | Emergency (ER) | payer MEDICARE, OTHER ==
[~2024-08-13] VITALS: Ht 167.6 cm; Wt 81.7 kg
[~2024-08-13 21:15] MED LIST changes: +AMIODARONE HCL400 M2 PO; +ATORVASTATIN CA20 MG PO; +Amiodarone HCl200 MG PO; +JARDIANCE10 MG PO
[2024-08-13] MEDS ORDERED: Morphine Sulfate 4 MG/1 ML Injection IV ONE ×2 (21:30→23:55)
[2024-08-14] MEDS ORDERED: OXYACE7.5T PO (00:06)
[2024-08-14] MEDS ORDERED: ACET500 PO (00:06)
[2024-08-14 00:30] VITALS: BP 148/70
[2024-08-14] MEDS ORDERED: RX Prepack 6 Tabs Oxycodone 5mg UD ONE (00:30)
== END 2024-08-14 00:48 | disposition home or self-care (01) ==
LOC: ER 21:15
DX: S42.342B Displaced spiral fracture of shaft of humerus, left arm, initial encounter for open fracture (principal); W18.39XA Other fall on same level, initial encounter; E11.9 Type 2 diabetes mellitus without complications; J44.9 Chronic obstructive pulmonary disease, unspecified; Z87.891 Personal history of nicotine dependence; Z79.84 Long term (current) use of oral hypoglycemic drugs; Z79.899 Other long term (current) drug therapy
CPT/HCPCS: 12011; 29105; 70450; 72125; 73060; 96374-59; 96376-59; 99284-25; A9270; J2270

== ENCOUNTER 2024-10-21 18:25 | Emergency (ER) | payer MEDICARE, OTHER ==
[~2024-10-21] VITALS: Ht 175.3 cm; Wt 79.4 kg
[~2024-10-21 18:25] MED LIST changes: +ACET500 PO; +OXYACE7.5T PO
[2024-10-21] MEDS ORDERED: ELIQUIS5 M2 PO (18:55)
[2024-10-21 19:06] LABS: BASOPHILS ABSOLUTE AUTO 0.03 K/mm3 (0.00-0.23); BASOPHILS PERCENT AUTO 0 % (0-2); EOSINOPHILS PERCENT AUTO 0 % (0-6); Hematocrit 43.7 % (37.0-53.0); Hemoglobin 13.9 g/dL (13.5-17.5); IMMATURE GRAN ABSOLUTE AUTO 0.05 K/mm3 (0.00-0.10); IMMATURE GRAN PERCENT AUTO 0 % (0-1); LYMPHOCYTES ABSOLUTE AUTO 1.34 K/mm3 (0.84-5.20); LYMPHOCYTES PERCENT AUTO 11 % (21-46); MONOCYTES ABSOLUTE AUTO 0.82 K/mm3 (0.16-1.47); MONOCYTES PERCENT AUTO 7 % (4-13); Mean Corpuscular HGB 31.7 pg (26.0-34.0); Mean Corpuscular HGB Conc 31.8 g/dL (31.5-36.5); Mean Corpuscular Volume 100 fL (80-100); Mean Platelet Volume 10.4 fL (9.1-12.4); NEUTROPHILS ABSOLUTE AUTO 9.84 K/mm3 (1.96-9.15); NEUTROPHILS PERCENT AUTO 82 % (41-73); Platelet Count 240 K/mm3 (150-400); RDW Coefficient Variation 14.9 % (11.7-14.2); RDW Standard Deviation 55.8 fL (35.1-46.3); Red Blood Cell Count 4.38 M/mm3 (4.30-5.90); White Blood Cell Count 12.08 K/mm3 (4.00-11.30)
[2024-10-21 19:19] LABS: Alanine Aminotransfer (ALT/SGP 23 U/L (12-78); Albumin, Blood 3.3 g/dL (3.4-5.0); Albumin/Globulin Ratio 0.8 (0.8-1.8); Alk Phos 103 U/L (50-136); Anion Gap 10 mmol/L (3-11); Aspartate Aminotrans (AST/SGOT 18 U/L (12-37); Bilirubin, Total 0.5 mg/dL (0.1-1.0); Blood Urea Nitrogen 18 mg/dL (8-24); Bun/Creatinine Ratio 14.4 (12.0-20.0); CO2, Blood 26 mmol/L (21-32); Calcium, Blood 9.2 mg/dL (8.5-10.1); Chloride, Blood 109 mmol/L (98-108); Creatinine, Blood 1.25 mg/dL (0.60-1.20); Ethanol (Alcohol), Blood, Med <3 mg/dL; Globulin, Blood 3.9 g/dL (2.2-4.0); Glomerular Filtration Rate 58 (60-); Glucose, Blood 137 mg/dL (70-99); Potassium, Blood 4.7 mmol/L (3.5-5.5); Sodium, Blood 140 mmol/L (136-145); Total Protein, Blood 7.2 g/dL (6.4-8.2)
[2024-10-21] MEDS ORDERED: Midazolam HCL 50 MG in NS 40 ML IV PRN (20:40)
[2024-10-21 21:22] LABS: Source, Urine Clean Catch
[2024-10-21 21:25] LABS: Appearance, Urine Clear (Clear); Bilirubin, Urine Neg (Neg); Blood, Urine 3+ (Neg); Color, Urine Yellow (P-Yellow); Glucose Qualitative, Urine Neg (Neg); Ketones, Urine Neg (Neg); Leukocyte Esterase, Urine Neg (Neg); Nitrite, Urine Neg (Neg); Protein, Urine 1+ (Neg); Specific Gravity, Urine 1.015 (1.003-1.022); Urobilinogen, Urine NORM (Normal)
[2024-10-21 21:40] LABS: U Barbituate Screen Not Detected; U Benzodiazapine Screen Not Detected; U Buprenorphine Screen Not Detected; U Cannabinoids Screen Not Detected; U Cocaine Screen Not Detected; U Methadone Screen Not Detected; U Methamphetamine Screen Not Detected; U Opiates Screen Not Detected; U Oxycodone Screen Not Detected; U Phencyclidine Screen Not Detected
[2024-10-21 21:42] LABS: U Amphetamine Screen Not Detected
[2024-10-21 21:43] LABS: Bacteria Rare /hpf; Red Blood Cells, Urine 25-50 /hpf (0-2); Squamous Epithelial Cells Not Seen /hpf (Few); White Blood Cells, Urine 0-2 /hpf (0-5)
[2024-10-21] MEDS ORDERED: HUMAN PROTHROMBIN COMPLX IV ONE ×2 (22:10→22:30)
[2024-10-21] MEDS ORDERED: levETIRAcetam 1,000 MG in NS 100 ML IV ONE (22:10)
[2024-10-21] MEDS ORDERED: WATER FOR INJECTION STERILE IV ONE ×2 (22:10→22:30)
[2024-10-21] MEDS ORDERED: MANNITOL IV SCH ×2 (22:30)
[2024-10-21 22:43] LABS: Prothrombin Time Results 10.7 Sec (9.7-11.5)
[2024-10-21] MEDS ORDERED: Mannitol 500 ML IV ONE (22:45)
[2024-10-22 01:30] VITALS: BP 136/60
[2024-10-22] MEDS ORDERED: NiCARdipine HCL 50 MG in NS 250 ML IV SCH (02:15)
== END 2024-10-22 02:50 | disposition short-term general hospital (02) ==
LOC: ER 18:25
PROVIDERS: Emergency Medicine; Student in an Organized Health Care Education/Training Program
DX: I62.9 Nontraumatic intracranial hemorrhage, unspecified (principal); R41.82 Altered mental status, unspecified; E11.9 Type 2 diabetes mellitus without complications; J44.9 Chronic obstructive pulmonary disease, unspecified; Z79.01 Long term (current) use of anticoagulants; Z87.891 Personal history of nicotine dependence; Z79.84 Long term (current) use of oral hypoglycemic drugs; Z79.1 Long term (current) use of non-steroidal anti-inflammatories (NSAID)
CPT/HCPCS: 70450; 71045; 80053; 80320; 81001; 85025; 85610; 93005; 93010; 96365-59; 96366-59; 96367-59; 96375-59; 99285-25; J1953; J2250; J7050; J7168